=== PATIENT | male | born 1975 | race Caucasian/White ===

== ENCOUNTER 2016-12-30 17:36 | Emergency (ER) | payer OTHER ==
[~2016-12-30] VITALS: Ht 182.9 cm; Wt 83.2 kg
[~2016-12-30 17:36] MED LIST: ADVIL200 M1 PO; BACTROBAN CREAM15 GM TP; EXCEDRIN1 TABLET PO; HYCODAN SYRUP480 ML PO; IBUPROFEN200 M1 PO; LEVAQUIN500 MG PO; LEVAQUIN750 MG PO; MOTRIN600 MG PO; MOTRIN800 MG PO; MUCUS ER600 MG PO; NOHOMEMEDS; PHENERGAN25 MG PR; PREDNISONE20 MG PO; PROMETHAZINE HC25 M1 PO; TESSALON PERLE100 MG PO; ULTRACET TABLE1 EACH PO; ZITHROMAX Z-PA250 MG PO
[2016-12-30 19:36] LABS: HEMATOCRIT 41.9 % (38.0-50.0); MCHC 33.7 G/DL (30.0-36.0); MCV 92.1 FL (86-99); MEAN PLAT.VOLUME 10.2 uM^3 (9.0-12.4); PLATELET COUNT 184 K/uL (156-360); RBC DIS.WIDTH-CV 12.7 % (11.8-14.6); RBC DIS.WIDTH-SD 41.1 % (39-53); RED BLOOD COUNT 4.55 M/uL (4.00-5.50); WHITE BLOOD COUNT 15.7 K/uL (4.1-10.2)
[2016-12-30 19:51] LABS: CHLORIDE 110 mEq/L (99-109); POTASSIUM 4.1 mEq/L (3.7-5.4); SODIUM 140 mEq/L (136-147)
[2016-12-30 19:53] LABS: GLUCOSE 98 mg/dL (70-99)
[2016-12-30 19:54] LABS: ANION GAP 9 MEQ/L (2-14)
[2016-12-30 19:55] LABS: TOTAL BILIRUBIN 0.2 mg/dL (0.0-1.0)
[2016-12-30 19:56] LABS: ALKALINE PHOSPHATASE 77 IU/L (3-129)
[2016-12-30 19:57] LABS: GFR ESTIMATE (CALCULATED) > 59 mL/min/
[2016-12-30 19:58] LABS: UREA NITROGEN (BUN) 22 mg/dL (9-23)
[2016-12-30 20:31] LABS: ADD MIUA? YES; BILIRUBIN NEGATIVE; BLOOD LARGE; COLOR YELLOW ((YELLOW)); GLUCOSE (STRIP) NEGATIVE; KETONES NEGATIVE; LEUKOCYTES NEGATIVE; NITRITE NEGATIVE; PROTEIN (STRIP) NEGATIVE; SPECIFIC GRAVITY 1.012 (1.000-1.030); UROBILINOGEN 0.2 MG/DL (0.2-1.0)
[2016-12-30 20:37] LABS: BACTERIA RARE /HPF; EPITHELIAL CELLS NONE SEEN /HPF; MUCUS TRACE /LPF; RED BLOOD CELLS 30-40 /HPF (0-5); UCUL ADDED? NO; WHITE BLOOD CELLS 0-5 /HPF (0-5)
[2016-12-30] MEDS ORDERED: PERCOCET 5/31 TABLET PO (21:45)
[2016-12-30 22:05] VITALS: BP 138/77
== END 2016-12-30 22:06 | disposition home or self-care (01) ==
LOC: EME 17:36
PROVIDERS: Physician Assistant Medical
DX: R10.32 Left lower quadrant pain (principal); R31.9 Hematuria, unspecified; N50.812 Left testicular pain; W00.1XXA Fall from stairs and steps due to ice and snow, initial encounter
CPT/HCPCS: 74176; 76870; 80053; 81003; 85027; 99281; 99284; J2405; J3010; J7030

== ENCOUNTER 2018-06-16 00:05 | Emergency (ER) | payer OTHER ==
[~2018-06-16] VITALS: Ht 182.9 cm; Wt 92.1 kg
[~2018-06-16 00:05] MED LIST changes: +KEFLEX500 MG PO; +PERCOCET 5/31 TABLET PO
[2018-06-16] MEDS ORDERED: FIORICET 50-301 EAC1 PO (03:36)
[2018-06-16] MEDS ORDERED: MOTRIN800 MG PO (03:36)
[2018-06-16 03:50] VITALS: BP 97/53
== END 2018-06-16 03:51 | disposition home or self-care (01) ==
LOC: EME 00:05
DX: S00.83XA Contusion of other part of head, initial encounter (principal); S06.0X0A Concussion without loss of consciousness, initial encounter; M54.2 Cervicalgia; W22.8XXA Striking against or struck by other objects, initial encounter; F17.200 Nicotine dependence, unspecified, uncomplicated
CPT/HCPCS: 70486; 99281; 99283